=== PATIENT | female | born 1990 | race Caucasian/White ===

== ENCOUNTER → 2021-10-29 15:30 | Observation (INO) | END | disposition home or self-care (01) | LOC: 1NENULAB | PROVIDERS: ADMIT Obstetrics & Gynecology; ATTEND Obstetrics & Gynecology ==

== ENCOUNTER 2021-11-09 13:03 | Inpatient (IN) ==
[2021-11-09] MEDS ORDERED: Famotidine 20 MG/2 ML VIAL IVP PRN (13:20)
[2021-11-09] MEDS ORDERED: *HR* Nalbuphine 10 MG/ML AMPUL IV PRN (13:20)
[2021-11-09] MEDS ORDERED: Metoclopramide 10 MG/2 ML VIAL IVP PRN (13:20)
[2021-11-09] MEDS ORDERED: Naloxone 0.4 MG/ML INJ IVP PRN (13:20)
[2021-11-09] MEDS ORDERED: Lidocaine 1% 20 ML MDV INFILT PRN (13:20)
[2021-11-09] MEDS ORDERED: Azithromycin 500 MG in 0.9 % Sodium Chloride 250 ML IVPB PRN (13:20)
[2021-11-09] MEDS ORDERED: Ondansetron 4 MG/2 ML VIAL IVP PRN (13:20)
[2021-11-09] MEDS ORDERED: Ringers Solution, Lactated 1,000 ML IVC SCH (13:30)
[2021-11-09] MEDS ORDERED: Oxytocin 20 units/ LR 1000 mL 20 UNIT/1,000 ML BAG IVC SCH ×2 (13:30→21:37)
[2021-11-09] MEDS ORDERED: Penicillin G Potassium 5,000,000 UNIT in 0.9 % Sodium Chloride Mini Bag 100 ML IVPB ONE (13:45)
[2021-11-09] MEDS ORDERED: Oxytocin 20 units/ LR 1000 mL 20 UNIT/1,000 ML BAG IVC ONE ×2 (14:07→21:37)
[2021-11-09 14:25] LABS: Basophils % 0.3 %; Eosinophils % 0.4 %; Hematocrit 32.4 % (35.3-44.9); Hemoglobin 10.5 g/dL (11.5-15.4); Immature Granulocytes % 0.6 % (0-4); Lymphocytes # 1.9 K/mcL (0.6-4.6); Mean Corpuscular HGB Conc 32.4 g/dL (31.6-35.5); Mean Corpuscular Hemoglobin 30.6 pg (28.0-33.3); Mean Corpuscular Volume 94.5 fL (83.0-100.0); Mean Platelet Volume 12.3 fL (9.4-12.4); Monocytes # 0.6 K/mcL (0.0-1.3); Monocytes % 5.7 %; Neutrophils # 8.4 K/mcL (1.6-8.9); Platelet Count 111 K/mcL (140-400); Red Blood Count 3.43 M/mcL (3.82-4.97); Red Cell Distribution Width 14.2 % (11.5-14.5); White Blood Count 11.1 K/mcL (4.3-11.1)
[2021-11-09] MEDS ORDERED: EPHEDrine 50 MG/ML VIAL IVP PRN (14:27)
[2021-11-09] MEDS ORDERED: Epidural Premix (fent/bupiv) 110 ML EP SCH (14:30)
[2021-11-09 14:36] LABS: Amphetamine Screen,Urine Negative ng/mL (Cutoff=1000); Barbiturate Screen,Urine Negative ng/mL (Cutoff=200); Benzodiazepines Screen,Urine Negative ng/mL (Cutoff=200); Cannabinoid Screen,Urine Negative ng/mL (Cutoff = 50); Cocaine Screen,Urine Negative ng/mL (Cutoff= 300); Opiate Screen,Urine Negative ng/mL (Cutoff=300); Phencyclidine Screen,Urine Negative ng/mL (Cutoff=25)
[2021-11-09 14:58] LABS: Influenza A PCR Negative (Negative); Influenza B PCR Negative (Negative); Resp. Syncytial Virus PCR Negative (Negative)
[2021-11-09 15:05] LABS: SARS-CoV-2 by PCR (In House) Negative (Negative)
[2021-11-09] MEDS ORDERED: Penicillin G Potassium 2,500,000 UNIT/105 ML MLS IVPB SCH (16:00)
[2021-11-09] MEDS ORDERED: Lanolin 7 G OINT...G. TP PRN (21:37)
[2021-11-09] MEDS ORDERED: Benzocaine/Menthol 56 GM AEROSOL SPRAY TP PRN (21:37)
[2021-11-09] MEDS ORDERED: Ondansetron ODT 4 MG TAB.RAPDIS SL PRN (21:37)
[2021-11-10] MEDS: Acetaminophen 325 MG TABLET PO SCH ×4 (00:52→20:00)
[2021-11-10] MEDS: Ibuprofen 600 MG TABLET PO SCH ×4 (00:52→20:00)
[2021-11-10] MEDS: Prenatal Vit/FA 1 EACH TABLET PO SCH (09:23)
[2021-11-10 20:22] VITALS: O2SAT 97
[2021-11-11 07:04] VITALS: BP 98/56; PULSE 61; TEMP 97.5
[2021-11-11] MEDS: Prenatal Vit/FA 1 EACH TABLET PO SCH (09:09)
[2021-11-11] MEDS: Ibuprofen 600 MG TABLET PO SCH (09:09)
== END 2021-11-11 10:15 | disposition home or self-care (01) | DRG 560 ==
LOC: 1NENULAB 13:03 → 1NENUOBS 23:12
PROVIDERS: ADMIT Advanced Practice Midwife; ATTEND Advanced Practice Midwife

== ENCOUNTER 2022-04-27 13:03 | Inpatient (IN) ==
[2022-04-27 15:06] LABS: Influenza A PCR Negative (Negative); Influenza B PCR Negative (Negative); Resp. Syncytial Virus PCR Negative (Negative)
[2022-04-27 15:07] LABS: SARS-CoV-2 by PCR (In House) Negative (Negative)
[2022-04-27] MEDS ORDERED: *HR* LORazepam 1 MG TABLET PO PRN (18:54)
[2022-04-27] MEDS ORDERED: Haloperidol Lactate 5 MG/ML VIAL IM PRN (18:54)
[2022-04-27] MEDS ORDERED: MOM Conc 10 ML UD.LIQ PO PRN (18:54)
[2022-04-27] MEDS ORDERED: haloperidoL 5 MG TABLET PO PRN (18:54)
[2022-04-27] MEDS ORDERED: *HR* LORazepam 2 MG/ML VIAL IM PRN (18:54)
[2022-04-27] MEDS ORDERED: Mag Hydrox/Al Hydrox/Simeth 30 ML UDC PO PRN (18:54)
[2022-04-28] MEDS: Nicotine 21 MG PATCH.TD24 TD SCH (11:13)
[2022-04-28] MEDS: Acetaminophen 325 MG TABLET PO PRN ×2 (11:14→21:18)
[2022-04-28] MEDS: traZODone 50 MG TABLET PO PRN (21:18)
[2022-04-29] MEDS: Nicotine 21 MG PATCH.TD24 TD SCH (08:49)
[2022-04-29] MEDS: Acetaminophen 325 MG TABLET PO PRN ×2 (11:37→20:57)
[2022-04-29 20:35] VITALS: O2SAT 99
[2022-04-29] MEDS: hydrOXYzine pamoate 25 MG CAPSULE PO PRN (20:57)
[2022-04-29] MEDS: traZODone 50 MG TABLET PO PRN (20:57)
[2022-04-30] MEDS: Nicotine 21 MG PATCH.TD24 TD SCH (09:35)
[2022-04-30 10:22] VITALS: BP 104/7; PULSE 84; TEMP 98.4
[2022-04-30] MEDS: Acetaminophen 325 MG TABLET PO PRN (10:50)
[2022-04-30] MEDS: hydrOXYzine pamoate 25 MG CAPSULE PO PRN (12:04)
== END 2022-04-30 17:47 | disposition home or self-care (01) | DRG 751 ==
LOC: EMEROOARM 13:03 → 1ANU 17:20
PROVIDERS: ADMIT Psychiatry & Neurology Psychiatry; ATTEND Psychiatry & Neurology Psychiatry